=== PATIENT | male | born 1940 | race Caucasian/White ===

== ENCOUNTER 2021-08-21 09:55 | Outpatient (CLI) | payer MEDICARE ==
[2021-08-22 01:30] LABS: SARS-CoV-2 PCR by NAA Not Detected (NotDetected)
== END 2021-08-21 09:56 | disposition home or self-care (01) ==
LOC: LABBT 09:55
PROVIDERS: ATTEND Internal Medicine Gastroenterology
DX: Z01.812 Encounter for preprocedural laboratory examination (principal); Z20.822 Contact with and (suspected) exposure to COVID-19
CPT/HCPCS: U0003; U0005

== ENCOUNTER 2021-08-26 06:53 | Day surgery (SDC) | payer MEDICARE ==
[2021-08-20 11:11] VITALS: BMI 39.0
[2021-08-26] MEDS ORDERED: Lidocaine 1% PF 5 ML VIAL ONE (10:30)
[2021-08-26] MEDS ORDERED: PROPOFOL 200 MG/20 ML VIAL ONE (10:30)
== END 2021-08-26 12:30 | disposition home or self-care (01) ==
LOC: SDC 06:53
PROVIDERS: ATTEND Internal Medicine Gastroenterology
PROC: 0W3P8ZZ Control Bleeding in Gastrointestinal Tract, Via Natural or Artificial Opening Endoscopic (ICD-10-PCS; principal; 2021-08-26)
PROC: 0DBK8ZX Excision of Ascending Colon, Via Natural or Artificial Opening Endoscopic, Diagnostic (ICD-10-PCS; 2021-08-26)
PROC: 0DBL8ZX Excision of Transverse Colon, Via Natural or Artificial Opening Endoscopic, Diagnostic (ICD-10-PCS; 2021-08-26)
PROC: 0DBN8ZX Excision of Sigmoid Colon, Via Natural or Artificial Opening Endoscopic, Diagnostic (ICD-10-PCS; 2021-08-26)
PROC: 0DBM8ZX Excision of Descending Colon, Via Natural or Artificial Opening Endoscopic, Diagnostic (ICD-10-PCS; 2021-08-26)
DX: D50.9 Iron deficiency anemia, unspecified (principal); D12.2 Benign neoplasm of ascending colon; D12.4 Benign neoplasm of descending colon; D12.5 Benign neoplasm of sigmoid colon; K31.819 Angiodysplasia of stomach and duodenum without bleeding; K22.2 Esophageal obstruction; K31.89 Other diseases of stomach and duodenum; K64.8 Other hemorrhoids; I11.0 Hypertensive heart disease with heart failure; I50.9 Heart failure, unspecified; I25.10 Atherosclerotic heart disease of native coronary artery without angina pectoris; E11.9 Type 2 diabetes mellitus without complications; Z79.02 Long term (current) use of antithrombotics/antiplatelets; Z79.84 Long term (current) use of oral hypoglycemic drugs; Z79.899 Other long term (current) drug therapy; Z95.1 Presence of aortocoronary bypass graft; Z95.2 Presence of prosthetic heart valve; Z95.5 Presence of coronary angioplasty implant and graft
CPT/HCPCS: 88305; J2704

== ENCOUNTER 2022-01-21 19:00 | Outpatient (CLI) | payer MEDICARE | END 2022-01-21 19:01 | disposition home or self-care (01) | LOC: SLEEPLAB 19:00 | PROVIDERS: ATTEND Family Medicine | DX: G47.33 Obstructive sleep apnea (adult) (pediatric) (principal); R53.83 Other fatigue; E66.9 Obesity, unspecified; G47.10 Hypersomnia, unspecified; I13.2 Hypertensive heart and chronic kidney disease with heart failure and with stage 5 chronic kidney disease, or end stage renal disease; I50.9 Heart failure, unspecified; E11.22 Type 2 diabetes mellitus with diabetic chronic kidney disease; N18.6 End stage renal disease; R09.02 Hypoxemia; I49.3 Ventricular premature depolarization; K21.9 Gastro-esophageal reflux disease without esophagitis; I25.10 Atherosclerotic heart disease of native coronary artery without angina pectoris; G47.00 Insomnia, unspecified; R06.83 Snoring; Z68.38 Body mass index [BMI] 38.0-38.9, adult; Z99.2 Dependence on renal dialysis | CPT/HCPCS: 95811 ==

== ENCOUNTER 2022-03-06 15:31 | Inpatient (IN) | payer MEDICARE ==
[2022-03-06 16:25] LABS: #Eosinphils 0.3 thou/uL (0.0-0.7); #Lymphocytes 1.2 thou/uL (1.20-3.40); #Neutrophils 9.4 thou/uL (1.40-6.50); %Basophils 0.4 % (0.0-1.0); %Eosinophils 2.5 % (0.0-10.0); %Lymphocytes 10.2 % (21.0-51.0); %Monocytes 8.4 % (0.0-10.0); %Neutrophils 78.6 % (42.0-75.0); Mean Corpuscular Hemoglobin 30.7 pg (27.0-31.0); Mean Corpuscular Volume 99.1 fL (78.0-98.0); Mean Platelet Volume 7.3 fL (7.4-10.4); Platelet Count 204 thou/uL (130-400); RBC Distribution Width 15.7 % (11.5-14.5); Red Blood Cell (RBC) Count 4.23 mill/uL (4.70-6.10)
[2022-03-06 16:55] LABS: ALT (SGPT) 14 U/L (8-55); AST (SGOT) 16 U/L (5-34); Albumin 3.5 g/dL (3.4-4.8); Alkaline Phosphatase 110 U/L (40-110); Anion Gap 17 mmol/L (10-20); BUN (Urea Nitrogen) 37 mg/dL (8.4-25.7); Bilirubin, Total 1.2 mg/dL (0.2-1.2); Calc. Creatinine Clearance 0 mL/min (70-130); Calcium 8.9 mg/dL (7.8-10.44); Carbon Dioxide 30 mmol/L (23-31); Chloride 96 mmol/L (98-107); Estimated GFR 27; Globulin 3.7 g/dL (2.4-3.5); Glucose 103 mg/dL (83-110); Potassium 4.2 mmol/L (3.5-5.1); Protein, Total 7.2 g/dL (5.8-8.1); Sodium 139 mmol/L (136-145)
[2022-03-06] MEDS ORDERED: Azithromycin 500 MG VIAL ONE (17:41)
[2022-03-06] MEDS ORDERED: cefTRIAXone\\ROCEPHIN 2 GM VIAL ONE (17:41)
[2022-03-06 18:19] LABS: SARS-CoV-2 NAA Rapid Test Not Detected (NotDetected)
[2022-03-06] MEDS ORDERED: Furosemide 100 MG/10 ML VIAL SLOW IVP SCH (18:30)
[2022-03-06] MEDS ORDERED: Dextrose 5% in Water 1,000 ML IV PRN (19:29)
[2022-03-06] MEDS ORDERED: HumaLOG 300 UNITS/3 ML VIAL SC PRN (19:29)
[2022-03-06] MEDS ORDERED: Dextrose 50% Abboject 50 ML SYRINGE SLOW IVP PRN (19:29)
[2022-03-06] MEDS: Heparin 5,000 UNITS/ML VIAL SC SCH (22:01)
[2022-03-06 22:40] VITALS: BMI 37.8
[2022-03-06] MEDS ORDERED: hydrOXYzine 25 MG TAB PO PRN (22:59)
[2022-03-07] MEDS ORDERED: Carvedilol 25 MG TAB PO SCH (00:30)
[2022-03-07 04:45] LABS: #Eosinphils 0.4 thou/uL (0.0-0.7); #Lymphocytes 1.1 thou/uL (1.20-3.40); #Neutrophils 7.8 thou/uL (1.40-6.50); %Basophils 0.2 % (0.0-1.0); %Eosinophils 4.2 % (0.0-10.0); %Lymphocytes 10.6 % (21.0-51.0); %Monocytes 9.3 % (0.0-10.0); %Neutrophils 75.6 % (42.0-75.0); Hemoglobin 13.3 g/dL (14.0-18.0); Mean Corpuscular HGB CONC 30.8 g/dL (32.0-36.0); Mean Platelet Volume 7.5 fL (7.4-10.4); Platelet Count 184 thou/uL (130-400); RBC Distribution Width 15.8 % (11.5-14.5); White Blood Cell (WBC) Count 10.2 thou/uL (4.8-10.8)
[2022-03-07 05:05] LABS: ALT (SGPT) 12 U/L (8-55); AST (SGOT) 18 U/L (5-34); Albumin 3.4 g/dL (3.4-4.8); Alkaline Phosphatase 121 U/L (40-110); Anion Gap 19 mmol/L (10-20); BUN (Urea Nitrogen) 39 mg/dL (8.4-25.7); Bilirubin, Total 0.8 mg/dL (0.2-1.2); Calc. Creatinine Clearance 41 mL/min (70-130); Calcium 8.8 mg/dL (7.8-10.44); Carbon Dioxide 25 mmol/L (23-31); Chloride 100 mmol/L (98-107); Estimated GFR 28; Globulin 3.7 g/dL (2.4-3.5); Glucose 174 mg/dL (83-110); Potassium 3.9 mmol/L (3.5-5.1); Protein, Total 7.1 g/dL (5.8-8.1); Sodium 140 mmol/L (136-145)
[2022-03-07] MEDS: HumaLOG 300 UNITS/3 ML VIAL SC PRN (06:32)
[2022-03-07] MEDS: Furosemide 100 MG/10 ML VIAL SLOW IVP SCH ×2 (06:33→15:50)
[2022-03-07] MEDS: Alogliptin 6.25 MG TAB PO SCH (10:28)
[2022-03-07] MEDS: Carvedilol 25 MG TAB PO SCH ×2 (10:28→22:00)
[2022-03-07] MEDS: Ascorbic Acid 500 mg Chewable Tablet PO SCH (10:28)
[2022-03-07] MEDS: Atorvastatin Calcium 40 MG TAB PO SCH (10:28)
[2022-03-07] MEDS: Docusate 100 MG CAP PO SCH ×2 (10:29→22:00)
[2022-03-07] MEDS: NIFEdipine XL 90 MG TAB PO SCH ×2 (10:29→22:00)
[2022-03-07] MEDS: Heparin 5,000 UNITS/ML VIAL SC SCH ×3 (10:29→22:01)
[2022-03-07] MEDS ORDERED: cefTRIAXone\\ROCEPHIN 2 GM in Sodium Chloride 0.9% 100 ML IVPB SCH (18:00)
[2022-03-07] MEDS ORDERED: Azithromycin 500 MG in Sodium Chloride 0.9% 250 ML 250 ML IVPB SCH (20:00)
[2022-03-07] MEDS: traZODone HCl 50 MG TAB PO SCH (22:01)
[2022-03-07] MEDS: Clopidogrel Bisulfate 75 MG TAB PO SCH (22:01)
[2022-03-07] MEDS ORDERED: Acetaminophen 325 MG TAB PO PRN (22:25)
[2022-03-08 05:25] LABS: Anion Gap 16 mmol/L (10-20); BUN (Urea Nitrogen) 38 mg/dL (8.4-25.7); Calc. Creatinine Clearance 41 mL/min (70-130); Calcium 8.4 mg/dL (7.8-10.44); Carbon Dioxide 31 mmol/L (23-31); Chloride 100 mmol/L (98-107); Estimated GFR 28; Glucose 171 mg/dL (83-110); Magnesium 2.5 mg/dL (1.6-2.6); Phosphorus 3.7 mg/dL (2.3-4.7); Potassium 3.5 mmol/L (3.5-5.1); Sodium 143 mmol/L (136-145)
[2022-03-08 07:17] LABS: #Basophils 0.1 thou/uL (0.0-0.2); #Eosinphils 0.5 thou/uL (0.0-0.7); #Lymphocytes 1.2 thou/uL (1.20-3.40); #Monocytes 0.9 thou/uL (0.11-0.59); #Neutrophils 6.2 thou/uL (1.40-6.50); %Basophils 0.6 % (0.0-1.0); %Eosinophils 5.3 % (0.0-10.0); %Lymphocytes 13.5 % (21.0-51.0); %Monocytes 10.4 % (0.0-10.0); %Neutrophils 70.2 % (42.0-75.0); Hemoglobin 13.5 g/dL (14.0-18.0); Mean Corpuscular HGB CONC 30.9 g/dL (32.0-36.0); Mean Corpuscular Hemoglobin 30.8 pg (27.0-31.0); Mean Corpuscular Volume 99.9 fL (78.0-98.0); Mean Platelet Volume 7.6 fL (7.4-10.4); Platelet Count 211 thou/uL (130-400); RBC Distribution Width 15.6 % (11.5-14.5); Red Blood Cell (RBC) Count 4.38 mill/uL (4.70-6.10); White Blood Cell (WBC) Count 8.9 thou/uL (4.8-10.8)
[2022-03-08] MEDS: Carvedilol 25 MG TAB PO SCH ×2 (10:08→21:58)
[2022-03-08] MEDS: Ascorbic Acid 500 mg Chewable Tablet PO SCH (10:08)
[2022-03-08] MEDS: Furosemide 100 MG/10 ML VIAL SLOW IVP SCH ×2 (10:09→17:44)
[2022-03-08] MEDS: Alogliptin 6.25 MG TAB PO SCH (10:09)
[2022-03-08] MEDS: NIFEdipine XL 90 MG TAB PO SCH ×2 (10:09→21:58)
[2022-03-08] MEDS: Docusate 100 MG CAP PO SCH ×2 (10:10→21:58)
[2022-03-08] MEDS: Atorvastatin Calcium 40 MG TAB PO SCH (10:10)
[2022-03-08] MEDS: Heparin 5,000 UNITS/ML VIAL SC SCH ×3 (10:10→21:59)
[2022-03-08] MEDS ORDERED: Potassium Chloride 20 MEQ TAB PO SCH (13:15)
[2022-03-08] MEDS: HumaLOG 300 UNITS/3 ML VIAL SC PRN ×2 (13:58→17:44)
[2022-03-08] MEDS: traZODone HCl 50 MG TAB PO SCH (21:58)
[2022-03-08] MEDS: Clopidogrel Bisulfate 75 MG TAB PO SCH (21:58)
[2022-03-09] MEDS: Furosemide 100 MG/10 ML VIAL SLOW IVP SCH ×2 (05:51→14:50)
[2022-03-09] MEDS: HumaLOG 300 UNITS/3 ML VIAL SC PRN (05:52)
[2022-03-09 07:02] LABS: Anion Gap 14 mmol/L (10-20); BUN (Urea Nitrogen) 41 mg/dL (8.4-25.7); Calc. Creatinine Clearance 36 mL/min (70-130); Calcium 8.7 mg/dL (7.8-10.44); Carbon Dioxide 30 mmol/L (23-31); Chloride 99 mmol/L (98-107); Estimated GFR 26; Glucose 230 mg/dL (83-110); Potassium 3.6 mmol/L (3.5-5.1); Sodium 139 mmol/L (136-145)
[2022-03-09] MEDS: NIFEdipine XL 90 MG TAB PO SCH (09:32)
[2022-03-09] MEDS: Alogliptin 6.25 MG TAB PO SCH (09:32)
[2022-03-09] MEDS: Heparin 5,000 UNITS/ML VIAL SC SCH ×2 (09:32→14:50)
[2022-03-09] MEDS: Atorvastatin Calcium 40 MG TAB PO SCH (09:33)
[2022-03-09] MEDS: Docusate 100 MG CAP PO SCH (09:33)
[2022-03-09] MEDS: Ascorbic Acid 500 mg Chewable Tablet PO SCH (09:33)
[2022-03-09] MEDS: Carvedilol 25 MG TAB PO SCH (09:33)
[2022-03-09 15:57] VITALS: BP 152/65; TEMP 97.3
== END 2022-03-09 18:10 | disposition home or self-care (01) | DRG 640 ==
LOC: ERS 15:31 → 2NO 19:29
PROVIDERS: ADMIT Family Medicine; ATTEND Family Medicine
PROC: 3E1M39Z Irrigation of Peritoneal Cavity using Dialysate, Percutaneous Approach (ICD-10-PCS; principal; 2022-03-06)
PROC: 5A09357 Assistance with Respiratory Ventilation, Less than 24 Consecutive Hours, Continuous Positive Airway Pressure (ICD-10-PCS; 2022-03-07)
DX: E87.70 Fluid overload, unspecified (principal); I50.43 Acute on chronic combined systolic (congestive) and diastolic (congestive) heart failure; N18.6 End stage renal disease; J96.01 Acute respiratory failure with hypoxia; I13.2 Hypertensive heart and chronic kidney disease with heart failure and with stage 5 chronic kidney disease, or end stage renal disease; I47.2 Ventricular tachycardia; Z66 Do not resuscitate; Z20.822 Contact with and (suspected) exposure to COVID-19; I25.10 Atherosclerotic heart disease of native coronary artery without angina pectoris; G47.33 Obstructive sleep apnea (adult) (pediatric); E11.22 Type 2 diabetes mellitus with diabetic chronic kidney disease; D63.1 Anemia in chronic kidney disease; E88.09 Other disorders of plasma-protein metabolism, not elsewhere classified; E11.51 Type 2 diabetes mellitus with diabetic peripheral angiopathy without gangrene; I25.5 Ischemic cardiomyopathy; Z99.2 Dependence on renal dialysis; Z99.89 Dependence on other enabling machines and devices; Z79.899 Other long term (current) drug therapy; Z79.02 Long term (current) use of antithrombotics/antiplatelets; Z79.84 Long term (current) use of oral hypoglycemic drugs; Z95.2 Presence of prosthetic heart valve; Z98.890 Other specified postprocedural states; Z95.1 Presence of aortocoronary bypass graft; Z82.49 Family history of ischemic heart disease and other diseases of the circulatory system; Z87.891 Personal history of nicotine dependence; Z98.49 Cataract extraction status, unspecified eye
CPT/HCPCS: 36415; 36416; 71045; 80048; 80053; 83605; 83735; 83880; 84100; 84145; 84484; 85025; 86850; 86900; 86901; 87040; 90945; 93005; 93306; 96365; 96375; G0257; J0456; J0696; J1644; J1815; J1940; J3490; J7050

== ENCOUNTER 2022-08-11 14:21 | Inpatient (IN) | payer MEDICARE ==
[2022-08-11 15:33] LABS: ALT (SGPT) 9 U/L (8-55); AST (SGOT) 12 U/L (5-34); Albumin 3.4 g/dL (3.4-4.8); Alkaline Phosphatase 109 U/L (40-110); Anion Gap 19 mmol/L (10-20); BUN (Urea Nitrogen) 74 mg/dL (8.4-25.7); Bilirubin, Total 0.7 mg/dL (0.2-1.2); Calc. Creatinine Clearance 0 mL/min (70-130); Calcium 8.4 mg/dL (7.8-10.44); Carbon Dioxide 24 mmol/L (23-31); Chloride 97 mmol/L (98-107); Estimated GFR 14; Globulin 3.6 g/dL (2.4-3.5); Glucose 117 mg/dL (83-110); Potassium 3.7 mmol/L (3.5-5.1); Sodium 136 mmol/L (136-145)
[2022-08-11 15:49] LABS: CKMB 1.3 ng/mL (0-6.6)
[2022-08-11] MEDS ORDERED: Furosemide 100 MG/10 ML VIAL ONE (15:57)
[2022-08-11] MEDS ORDERED: Labetalol HCl 100 MG/20 ML VIAL ONE (17:31)
[2022-08-11 17:38] LABS: SARS-CoV-2 NAA Rapid Test Not Detected (NotDetected)
[2022-08-11 18:47] LABS: #Eosinphils 0.6 thou/uL (0.0-0.7); #Lymphocytes 1.3 thou/uL (1.20-3.40); #Monocytes 1.1 thou/uL (0.11-0.59); #Neutrophils 10.3 thou/uL (1.40-6.50); %Basophils 0.2 % (0.0-1.0); %Eosinophils 4.6 % (0.0-10.0); %Lymphocytes 9.9 % (21.0-51.0); %Monocytes 8.2 % (0.0-10.0); %Neutrophils 77.1 % (42.0-75.0); Hemoglobin 9.2 g/dL (14.0-18.0); Mean Corpuscular HGB CONC 31.7 g/dL (32.0-36.0); Mean Corpuscular Hemoglobin 30.4 pg (27.0-31.0); Mean Corpuscular Volume 95.8 fl (78.0-98.0); Mean Platelet Volume 7.3 fL (7.4-10.4); Platelet Count 270 10x3/uL (130-400); RBC Distribution Width 15.4 % (11.5-14.5); Red Blood Cell (RBC) Count 3.01 mill/uL (4.70-6.10); White Blood Cell (WBC) Count 13.4 10x3/uL (4.8-10.8)
[2022-08-11 19:13] LABS: Troponin I 0.044 ng/mL (< 0.028)
[2022-08-11] MEDS ORDERED: Acetaminophen 325 MG TAB PO PRN (20:16)
[2022-08-11] MEDS ORDERED: Ondansetron PF 4 MG/2 ML Vial IVP PRN (20:16)
[2022-08-11] MEDS ORDERED: HumaLOG 300 UNITS/3 ML VIAL SC PRN (20:19)
[2022-08-11] MEDS ORDERED: Dextrose 5% in Water 1,000 ML IV PRN (20:19)
[2022-08-11] MEDS ORDERED: Dextrose 50% Abboject 50 ML SYRINGE SLOW IVP PRN (20:19)
[2022-08-11] MEDS ORDERED: cefTRIAXone\\ROCEPHIN 1 GM VIAL ONE (21:45)
[2022-08-11 21:50] VITALS: BMI 34.6
[2022-08-11] MEDS: cefTRIAXone\\ROCEPHIN 1 GM in Sodium Chloride 0.9% 100 ML IVPB SCH (21:51)
[2022-08-11 22:24] LABS: Troponin I 0.056 ng/mL (< 0.028)
[2022-08-11] MEDS ORDERED: Azithromycin 500 MG VIAL ONE (22:34)
[2022-08-11] MEDS: Azithromycin 500 MG in Sodium Chloride 0.9% 250 ML 250 ML IVPB SCH (23:13)
[2022-08-12] MEDS ORDERED: Labetalol HCl 100 MG/20 ML VIAL SLOW IVP SCH (02:00)
[2022-08-12 04:20] LABS: #Basophils 0.1 thou/uL (0.0-0.2); #Eosinphils 0.6 thou/uL (0.0-0.7); #Lymphocytes 1.2 thou/uL (1.20-3.40); #Monocytes 1.1 thou/uL (0.11-0.59); #Neutrophils 9.5 thou/uL (1.40-6.50); %Basophils 0.5 % (0.0-1.0); %Eosinophils 4.7 % (0.0-10.0); %Lymphocytes 9.7 % (21.0-51.0); %Neutrophils 76.1 % (42.0-75.0); Hemoglobin 8.5 g/dL (14.0-18.0); Mean Corpuscular HGB CONC 31.6 g/dL (32.0-36.0); Mean Corpuscular Hemoglobin 30.3 pg (27.0-31.0); Mean Corpuscular Volume 95.8 fl (78.0-98.0); Mean Platelet Volume 7.3 fL (7.4-10.4); Platelet Count 238 10x3/uL (130-400); RBC Distribution Width 15.5 % (11.5-14.5); Red Blood Cell (RBC) Count 2.79 mill/uL (4.70-6.10); White Blood Cell (WBC) Count 12.5 10x3/uL (4.8-10.8)
[2022-08-12 04:38] LABS: Anion Gap 19 mmol/L (10-20); BUN (Urea Nitrogen) 77 mg/dL (8.4-25.7); Calc. Creatinine Clearance 22 mL/min (70-130); Calcium 8.3 mg/dL (7.8-10.44); Carbon Dioxide 25 mmol/L (23-31); Chloride 100 mmol/L (98-107); Estimated GFR 15; Glucose 161 mg/dL (83-110); Potassium 3.2 mmol/L (3.5-5.1); Sodium 141 mmol/L (136-145)
[2022-08-12] MEDS: HumaLOG 300 UNITS/3 ML VIAL SC PRN (06:48)
[2022-08-12] MEDS ORDERED: Potassium Chloride 40 MEQ in Premix Bag 1 BAG IVPB SCH (08:00)
[2022-08-12] MEDS ORDERED: hydrALAZINE 20 MG/ML VIAL SLOW IVP PRN (09:24)
[2022-08-12] MEDS ORDERED: Spironolactone 25 MG TAB PO SCH (09:45)
[2022-08-12] MEDS: hydrALAZINE 25 MG TAB PO SCH ×3 (10:02→20:11)
[2022-08-12] MEDS: Carvedilol 25 MG TAB PO SCH ×2 (10:02→20:11)
[2022-08-12] MEDS: Potassium Chloride 20 MEQ in Premix Bag 1 BAG IVPB SCH ×3 (10:37→16:46)
[2022-08-12] MEDS ORDERED: Potassium Chloride 20 MEQ TAB PO SCH (12:45)
[2022-08-12] MEDS: NIFEdipine XL 60 MG TAB PO SCH ×3 (13:22→20:11)
[2022-08-12] MEDS: Atorvastatin Calcium 40 MG TAB PO SCH (20:11)
[2022-08-12] MEDS: cefTRIAXone\\ROCEPHIN 1 GM in Sodium Chloride 0.9% 100 ML IVPB SCH (20:12)
[2022-08-12] MEDS: Azithromycin 500 MG in Sodium Chloride 0.9% 250 ML 250 ML IVPB SCH (21:28)
[2022-08-13 04:43] LABS: #Eosinphils 0.6 thou/uL (0.0-0.7); #Lymphocytes 1.4 thou/uL (1.20-3.40); #Monocytes 1.2 thou/uL (0.11-0.59); #Neutrophils 8.2 thou/uL (1.40-6.50); %Basophils 0.4 % (0.0-1.0); %Eosinophils 5.2 % (0.0-10.0); %Lymphocytes 12.2 % (21.0-51.0); %Monocytes 10.4 % (0.0-10.0); %Neutrophils 71.7 % (42.0-75.0); Hemoglobin 8.6 g/dL (14.0-18.0); Mean Corpuscular HGB CONC 31.7 g/dL (32.0-36.0); Mean Corpuscular Hemoglobin 30.8 pg (27.0-31.0); Mean Platelet Volume 7.1 fL (7.4-10.4); Platelet Count 242 10x3/uL (130-400); RBC Distribution Width 15.1 % (11.5-14.5); Red Blood Cell (RBC) Count 2.79 mill/uL (4.70-6.10); White Blood Cell (WBC) Count 11.4 10x3/uL (4.8-10.8)
[2022-08-13 05:08] LABS: ALT (SGPT) 9 U/L (8-55); AST (SGOT) 13 U/L (5-34); Albumin 3.2 g/dL (3.4-4.8); Alkaline Phosphatase 102 U/L (40-110); Anion Gap 18 mmol/L (10-20); BUN (Urea Nitrogen) 78 mg/dL (8.4-25.7); Bilirubin, Total 0.5 mg/dL (0.2-1.2); Calc. Creatinine Clearance 23 mL/min (70-130); Calcium 8.3 mg/dL (7.8-10.44); Carbon Dioxide 24 mmol/L (23-31); Chloride 99 mmol/L (98-107); Estimated GFR 15; Globulin 3.3 g/dL (2.4-3.5); Glucose 271 mg/dL (83-110); Magnesium 2.5 mg/dL (1.6-2.6); Potassium 3.7 mmol/L (3.5-5.1); Protein, Total 6.5 g/dL (5.8-8.1); Sodium 137 mmol/L (136-145)
[2022-08-13] MEDS: HumaLOG 300 UNITS/3 ML VIAL SC PRN ×2 (05:54→18:12)
[2022-08-13] MEDS: Spironolactone 25 MG TAB PO SCH (09:18)
[2022-08-13] MEDS: hydrALAZINE 25 MG TAB PO SCH ×3 (09:18→20:15)
[2022-08-13] MEDS: Carvedilol 25 MG TAB PO SCH ×2 (09:19→20:15)
[2022-08-13] MEDS: NIFEdipine XL 60 MG TAB PO SCH ×3 (09:19→20:15)
[2022-08-13 12:33] LABS: #Eosinphils 0.5 thou/uL (0.0-0.7); #Lymphocytes 1.1 thou/uL (1.20-3.40); #Monocytes 1.1 thou/uL (0.11-0.59); #Neutrophils 9.9 thou/uL (1.40-6.50); %Basophils 0.4 % (0.0-1.0); %Eosinophils 4.1 % (0.0-10.0); %Lymphocytes 8.9 % (21.0-51.0); %Monocytes 8.9 % (0.0-10.0); %Neutrophils 77.7 % (42.0-75.0); Hemoglobin 8.4 g/dL (14.0-18.0); Mean Corpuscular HGB CONC 31.6 g/dL (32.0-36.0); Mean Corpuscular Hemoglobin 30.5 pg (27.0-31.0); Mean Corpuscular Volume 96.7 fl (78.0-98.0); Mean Platelet Volume 7.3 fL (7.4-10.4); Platelet Count 235 10x3/uL (130-400); RBC Distribution Width 15.4 % (11.5-14.5); Red Blood Cell (RBC) Count 2.76 mill/uL (4.70-6.10); White Blood Cell (WBC) Count 12.7 10x3/uL (4.8-10.8)
[2022-08-13] MEDS: Atorvastatin Calcium 40 MG TAB PO SCH (20:15)
[2022-08-13] MEDS: cefTRIAXone\\ROCEPHIN 1 GM in Sodium Chloride 0.9% 100 ML IVPB SCH (20:15)
[2022-08-13] MEDS: Azithromycin 500 MG in Sodium Chloride 0.9% 250 ML 250 ML IVPB SCH (20:57)
[2022-08-14 04:58] LABS: #Basophils 0.1 thou/uL (0.0-0.2); #Eosinphils 0.7 thou/uL (0.0-0.7); #Lymphocytes 1.4 thou/uL (1.20-3.40); #Monocytes 1.3 thou/uL (0.11-0.59); #Neutrophils 8.4 thou/uL (1.40-6.50); %Basophils 0.5 % (0.0-1.0); %Eosinophils 5.5 % (0.0-10.0); %Lymphocytes 11.9 % (21.0-51.0); %Monocytes 11.3 % (0.0-10.0); %Neutrophils 70.8 % (42.0-75.0); Mean Corpuscular HGB CONC 31.5 g/dL (32.0-36.0); Mean Corpuscular Hemoglobin 30.3 pg (27.0-31.0); Mean Corpuscular Volume 96.1 fl (78.0-98.0); Platelet Count 238 10x3/uL (130-400); RBC Distribution Width 15.3 % (11.5-14.5); Red Blood Cell (RBC) Count 2.62 mill/uL (4.70-6.10); White Blood Cell (WBC) Count 11.8 10x3/uL (4.8-10.8)
[2022-08-14 05:22] LABS: ALT (SGPT) Less than 7 U/L (8-55); AST (SGOT) 11 U/L (5-34); Albumin 3.3 g/dL (3.4-4.8); Alkaline Phosphatase 93 U/L (40-110); Anion Gap 16 mmol/L (10-20); BUN (Urea Nitrogen) 67 mg/dL (8.4-25.7); Bilirubin, Total 0.5 mg/dL (0.2-1.2); Calc. Creatinine Clearance 23 mL/min (70-130); Calcium 8.3 mg/dL (7.8-10.44); Carbon Dioxide 27 mmol/L (23-31); Chloride 98 mmol/L (98-107); Estimated GFR 15; Globulin 3.3 g/dL (2.4-3.5); Glucose 182 mg/dL (83-110); Magnesium 2.5 mg/dL (1.6-2.6); Potassium 3.5 mmol/L (3.5-5.1); Protein, Total 6.6 g/dL (5.8-8.1); Sodium 137 mmol/L (136-145)
[2022-08-14 05:37] LABS: HBSAg Index 0.25 S/CO (0-0.99); Hep B Surf Ag Non-Reactive S/CO (NonReactive)
[2022-08-14] MEDS: HumaLOG 300 UNITS/3 ML VIAL SC PRN ×2 (06:08→12:31)
[2022-08-14] MEDS: Carvedilol 25 MG TAB PO SCH (09:20)
[2022-08-14] MEDS: hydrALAZINE 25 MG TAB PO SCH (09:21)
[2022-08-14] MEDS: NIFEdipine XL 60 MG TAB PO SCH (09:21)
[2022-08-14] MEDS: Spironolactone 25 MG TAB PO SCH (09:21)
[2022-08-14 13:41] VITALS: BP 163/70; TEMP 97.6
== END 2022-08-14 14:16 | disposition home or self-care (01) | DRG 193 ==
LOC: ERS 14:21 → ERHOLD 18:30 → 2NO 23:45
PROVIDERS: ADMIT Family Medicine; ATTEND Internal Medicine
PROC: 3E1M39Z Irrigation of Peritoneal Cavity using Dialysate, Percutaneous Approach (ICD-10-PCS; 2022-08-13)
PROC: 30233N1 Transfusion of Nonautologous Red Blood Cells into Peripheral Vein, Percutaneous Approach (ICD-10-PCS; principal; 2022-08-14)
DX: J18.9 Pneumonia, unspecified organism (principal); I50.43 Acute on chronic combined systolic (congestive) and diastolic (congestive) heart failure; N18.6 End stage renal disease; J96.21 Acute and chronic respiratory failure with hypoxia; I13.2 Hypertensive heart and chronic kidney disease with heart failure and with stage 5 chronic kidney disease, or end stage renal disease; J98.11 Atelectasis; Z20.822 Contact with and (suspected) exposure to COVID-19; D63.1 Anemia in chronic kidney disease; I25.10 Atherosclerotic heart disease of native coronary artery without angina pectoris; E78.5 Hyperlipidemia, unspecified; E11.22 Type 2 diabetes mellitus with diabetic chronic kidney disease; E88.09 Other disorders of plasma-protein metabolism, not elsewhere classified; K21.9 Gastro-esophageal reflux disease without esophagitis; E87.6 Hypokalemia; G47.33 Obstructive sleep apnea (adult) (pediatric); Z86.73 Personal history of transient ischemic attack (TIA), and cerebral infarction without residual deficits; Z79.899 Other long term (current) drug therapy; Z95.1 Presence of aortocoronary bypass graft; Z99.81 Dependence on supplemental oxygen; Z99.2 Dependence on renal dialysis; Z95.2 Presence of prosthetic heart valve; Z98.41 Cataract extraction status, right eye; Z98.42 Cataract extraction status, left eye; Z83.3 Family history of diabetes mellitus; Z87.891 Personal history of nicotine dependence
CPT/HCPCS: 36415; 36416; 36430; 71045; 80048; 80053; 82040; 82553; 83735; 83880; 84100; 84484; 85025; 86850; 86900; 86901; 87070; 87205; 87340; 90945; 93005; 93970; 94760; 96374; 96375; G0257; J0456; J0696; J1815; J1940; J3480; J3490; J7050; P9016

== ENCOUNTER 2022-09-07 13:01 | Outpatient (CLI) | payer MEDICARE | END 2022-09-07 13:02 | disposition home or self-care (01) | LOC: RAD 13:01 | PROVIDERS: ATTEND Internal Medicine Critical Care Medicine | DX: R06.00 Dyspnea, unspecified (principal); I50.9 Heart failure, unspecified | CPT/HCPCS: 71046 ==